=== PATIENT | male | born 1965 | race Caucasian/White ===

== ENCOUNTER 2020-10-16 08:01 | Emergency (ER) | payer OTHER, SELFPAY ==
--- NOTE | ~2020-10-16 | XR_ITS ---
EXAMINATION: XR heel LT min 2V INDICATION: Left heel pain TECHNIQUE: Two views of the left heel are obtained. COMPARISON: None available FINDINGS: Bone alignment is normal. There is no fracture. Dorsal and plantar calcaneal enthesophytes are noted. IMPRESSION: 1. No acute osseous abnormality. Reviewed, dictated and finalized at location A.
--- NOTE | ~2020-10-16 | XR_ITS ---
EXAMINATION: XR foot LT min 3V DATE: 10/16/2020 08:55 INDICATION: Left foot pain TECHNIQUE: Dorsoplantar, lateral, and 2 oblique views of the left foot were obtained. COMPARISON: None. FINDINGS: There is no fracture, dislocation, or subluxation. The soft tissues and joint spaces are no rmal. Dorsal and plantar calcaneal enthesophytes are noted. There is mild cortical irregularity at th e lateral aspect of the distal fibula which could reflect prior injury. IMPRESSION: 1. No acute osseous abnormality. Reviewed, dictated and finalized at location A.
[2020-10-16 08:14] VITALS: BP 158/88; PULSE 64; RESP 20; TEMP 36.7; O2SAT 97
--- NOTE | 2020-10-16 09:25 | ED.SKABFB ---
HPI - Skin/Abscess/Foreign Bdy General Chief complaint: Skin/Abscess/Foreign Body Stated complaint: Red streaks up legs Source: patient Mode of arrival: ambulatory Limitations: no limitations History of Present Illness HPI narrative: Patient is a 55 year old male who presents with red streaking to bilateral legs. Patient reports fall on steps approximately 1-2 months ago, denies warmth or tenderness to legs, denies edema or pain. Patient denies fever, chills or bodyaches. Patient is concerned as he flies to [place] in 3 days. He denies significant history or all other complaints. complaint: rash Related Data Home Medications Medication Instructions Recorded Confirmed atorvastatin 10/16/20 nebivolol [Bystolic] mg 10/16/20 Allergies Allergy/AdvReac Type Severity Reaction Status Date / Time No Known Allergies Allergy Verified 10/16/20 08:25 Review of Systems Review of Systems: Narrative: CONSTITUTIONAL: Denies fever, chills, or sweats. EYES: Denies visual changes, redness, or discharge. ENT: Denies rhinorrhea, congestion, sore throat, or otalgia. CARDIOVASCULAR: Denies chest pain, palpitations, or edema. RESPIRATORY: Denies cough or dyspnea. GASTROINTESTINAL: Denies abdominal pain, nausea, vomiting, or diarrhea. GENITOURINARY: Denies dysuria or hematuria. SKIN: Red streaks to bilateral lower extremities MUSCULOSKELETAL: Denies back pain, joint pain, or myalgia. NEUROLOGIC: Denies headache, numbness, dizziness, or weakness. PSYCHIATRIC: Denies anxiety or depression. PMFSH Past Medical History Medical History (Updated 10/16/20 @ 19:34 by JOSE J Zamora) High cholesterol HTN (hypertension) Surgical History Surgical History (Updated 10/16/20 @ 19:32 by JOSE J Zamora) H/O inguinal hernia repair Hx of tonsillectomy Family History Family History (Updated 10/16/20 @ 19:32 by JOSE J Zamora) Other Heart disease Social History Social History (Updated 10/16/20 @ 19:33 by JOSE J Zamora) Smoking status: Never smoker Alcohol intake: current Alcohol use details: occasional Substance use: never Living arrangements: with family Occupation/Education: occupation Exam Narrative: Exam Narrative: GENERAL: Well-appearing, well-nourished, and in no acute distress. HEAD: Normocephalic, atraumatic. EYES: EOMI. No redness or drainage. Conjunctiva are normal. ENT: Mucous membranes pink and moist. CHEST: No respiratory distress. HEART: Regular rate and rhythm. EXTREMITIES: Normal range of motion. No edema. SKIN: Erythematous streaks to bilateral legs, no warmth or tenderness noted with palpation NEURO: No focal deficits. Alert and oriented x3. Gait steady. PSYCH: Normal affect. No signs of depression or anxiety. Course Vital Signs Vital signs: Vital Signs Temperature 36.7 C 10/16/20 08:14 Pulse Rate 64 10/16/20 08:14 Respiratory Rate 20 10/16/20 08:14 Blood Pressure 158/88 H 10/16/20 08:14 Pulse Oximetry 97 10/16/20 08:14 Temperature 36.7 C 10/16/20 08:14 Pulse Rate 64 10/16/20 08:14 Respiratory Rate 20 10/16/20 08:14 Blood Pressure 158/88 H 10/16/20 08:14 Pulse Oximetry 97 10/16/20 08:14 Transfer Transfered to: [facility] Transportation: Other (Private Vehicle) Transfer rationale: Higher Level of Care, Accepting physician: Dr. Solis Transfer comments: Patient to go to ED for further testing and evaluation. Discussed with Dr. Berger, collaborating physician who agrees with plan of care. MDM - Skin/Abscess/Foreign Bdy MDM Narrative Medical decision making narrative: Patient sent to [facility] for further evaluation. Patient agrees with plan of care. Patient is stable for transfer to [facility] at this time. Differential Diagnosis Differential diagnosis: Likely abscess of skin or subcutaneous tissue, viral exanthem, dermatophytosis, urticaria, allergic reaction to drug and cellulitis Critical Care
== END 2020-10-16 09:21 | disposition short-term general hospital (02) ==
PROVIDERS: Emergency Provider Nurse Practitioner
DX: R21 Rash and other nonspecific skin eruption (principal); E78.00 Pure hypercholesterolemia, unspecified; I10 Essential (primary) hypertension
CPT/HCPCS: 73630; 73650; 99203; G0463